=== PATIENT | male | born 1945 | race Caucasian/White ===

== ENCOUNTER 2017-01-24 06:11 | Emergency (ER) | payer MEDICARE, BC ==
[~2017-01-24] VITALS: Ht 175.3 cm; Wt 91.2 kg
[2017-01-24 06:12] VITALS: BP 150/91
== END 2017-01-24 07:37 | disposition home or self-care (01) ==
LOC: ED 07:13
DX: S62.633A Displaced fracture of distal phalanx of left middle finger, initial encounter for closed fracture (principal); X58.XXXA Exposure to other specified factors, initial encounter; Y93.64 Activity, baseball; Y99.8 Other external cause status; Y92.328 Other athletic field as the place of occurrence of the external cause